=== PATIENT | female | born 1990 | race Caucasian/White ===

== ENCOUNTER 2018-06-02 17:05 | Emergency (ER) | payer MEDICAID, OTHER ==
[~2018-06-02] VITALS: Ht 177.8 cm; Wt 56.7 kg
[2018-06-02 17:15] VITALS: BP 121/55
[2018-06-02] MEDS ORDERED: ORTHO TRI-CYCL1 EAC1 PO (17:16)
[2018-06-02] MEDS ORDERED: KLONOPIN0.5 MG ORAL (17:16)
[2018-06-02] MEDS ORDERED: Morphine Sulfate 4mg/ml Inj (IV/IM USE ONLY) IVP ONE (17:30)
[2018-06-02 17:49] LABS: APPEARANCE,URINE CLEAR; BILIRUBIN, URINE NEGATIVE (NEGATIVE); GLUCOSE, URINE (UA) NEGATIVE (NEGATIVE); KETONES,URINE NEGATIVE (NEGATIVE); LEUKOCYTE ESTERASE ,URINE NEGATIVE (NEGATIVE); NITRITE,URINE NEGATIVE (NEGATIVE); PH,URINE 5 (4.5-8.0); PROTEIN,URINE NEGATIVE (NEGATIVE); UROBILINOGEN,URINE NORMAL MG/DL (0.0-1.0)
[2018-06-02 17:53] LABS: BASOPHILS % (AUTO) 1.3 % (0.0-2.0); EOSINOPHILS % (AUTO) 1.9 % (0.0-3.0); HEMATOCRIT 41.9 % (37.0-47.0); HEMOGLOBIN 14.2 G/DL (12.0-16.0); LYMPHOCYTES % (AUTO) 38.3 % (20.0-45.0); MEAN CORPUSCULAR VOLUME 90 FL (80-99); MONOCYTES % (AUTO) 6.6 % (1.0-10.0); PLATELET COUNT 238 K/UL (150-450); RED BLOOD COUNT 4.65 M/UL (4.20-5.40); RED CELL DISTRIBUTION WIDTH 11.2 % (11.6-14.8); WHITE BLOOD COUNT 6.9 K/UL (4.8-10.8)
[2018-06-02 17:53] LABS: COLOR,URINE YELLOW
[2018-06-02] MEDS ORDERED: Morphine Sulfate 2mg/ml Inj IVP ONE (18:00)
[2018-06-02 18:02] LABS: ANION GAP 7 mmol/L (5-15); BLOOD UREA NITROGEN 10 mg/dL (7-18); CALCIUM 8.6 MG/DL (8.5-10.1); CARBON DIOXIDE 28 MMOL/L (21-32); CHLORIDE 102 MMOL/L (98-107); POTASSIUM 3.9 MMOL/L (3.5-5.1); SODIUM 137 MMOL/L (136-145)
[2018-06-02 18:07] LABS: ALANINE AMINOTRANSFERASE 41 U/L (12-78); ALBUMIN 3.3 G/DL (3.4-5.0); ALBUMIN/GLOBULIN RATIO 0.7 (1.0-2.7); ALKALINE PHOSPHATASE 56 U/L (46-116); ASPARTATE AMINO TRANSFERASE 27 U/L (15-37); BILIRUBIN,TOTAL 0.3 MG/DL (0.2-1.0)
[2018-06-02 19:23] VITALS: BP 106/56
[2018-06-02] MEDS ORDERED: ACETAMINOPHEN-1 EAC1 ORAL (19:46)
[2018-06-02] MEDS ORDERED: IBUPROFEN600 MG ORAL (19:46)
[2018-06-02 19:53] VITALS: BP 106/56
--- NOTE | 2018-06-02 22:15 | Emergency Room Report ---
History of Present Illness General Chief Complaint: Abdominal Pain Source: Patient Present Illness HPI 28-year-old female presents ED for evaluation. Complaining of lower abdominal pain 1 month. 6 out of 10, dull, radiating to the back. States that her period started early she's been bleeding heavier than usual. States that up to 2 months ago she was having regular periods. Denies chest pain or shortness of breath. Denies fevers or chills. States she is currently taking Ortho Tri- Cyclen for control. No other aggravating or relieving factors. Denies any other associated symptoms Allergies: Coded Allergies: No Known Allergies (Unverified , 06/02/18) Patient History Past Medical History: none Past Surgical History: none Pertinent Family History: none Social History: Denies: smoking, alcohol use, drug use Last Menstrual Period: 04/2018 Now: No Immunizations: UTD Reviewed Nursing Documentation: PMH: Agreed; PSxH: Agreed Nursing Documentation-PMH Past Medical History: No History, Except For Review of Systems All Other Systems: negative except mentioned in HPI Physical Exam Vital Signs Date Time Temp Pulse Resp B/P (MAP) Pulse Ox O2 Delivery O2 Flow Rate FiO2 06/02/18 17:08 97.7 76 18 104/62 99 Room Air Sp02 EP Interpretation: reviewed, normal General Appearance: no apparent distress, alert, GCS 15, non-toxic Head: normocephalic, atraumatic Eyes: bilateral eye normal inspection, bilateral eye PERRL ENT: hearing grossly normal, normal pharynx, no angioedema, normal voice Neck: full range of motion, supple/symm/no masses Respiratory: chest non-tender, lungs clear, normal breath sounds, speaking full sentences Cardiovascular #1: regular rate, rhythm, no edema Cardiovascular #2: 2+ carotid (R), 2+ carotid (L), 2+ radial (R), 2+ radial (L) , 2+ dorsalis pedis (R), 2+ dorsalis pedis (L) Gastrointestinal: normal bowel sounds, soft, non-distended, no guarding, no rebound, tenderness - lower abd pain Rectal: deferred Genitourinary: normal inspection, no CVA tenderness Musculoskeletal: back normal, gait/station normal, normal range of motion, non- tender Neurologic: alert, oriented x3, responsive, motor strength/tone normal, sensory intact, speech normal Psychiatric: judgement/insight normal, memory normal, mood/affect normal, no suicidal/homicidal ideation Reflexes: 3+ bicep (R), 3+ bicep (L), 3+ tricep (R), 3+ tricep (L), 3+ knee (R) , 3+ knee (L) Skin: normal color, no rash, warm/dry, well hydrated Lymphatic: no adenopathy Medical Decision Making Diagnostic Impression: Primary Impression: Fibroids Qualified Codes: D25.9 - Leiomyoma of uterus, unspecified ER Course Hospital Course 28-year-old female presents to ED complaining of lower abdominal pain + bleeding Differential diagnoses include: gastrits, gastroenterits, ectopic , ovarian torsion/cyst, UTI Clinical course Patient placed on stretcher in ED. After initial history and physical I ordered labs, IV fluids and pain meds and pelvic ultrasound. Labs-no leukocytosis, hb/hct stable, electrolytes okay, beta hCG negative, UA negative Pelvic ultrasound- fibroids, follicular cysts bilateral ovaries Discussed findings with patient. Safe for discharge with close outpatient follow-up. States she is currently taking Ortho Tri-Cyclen for control. Has an WELFARE OFFICER to follow-up with. Diagnosis - fibroids Stable and discharged to home with Rx MOtrin, Tylenol #3. Followup with PMD/OB/ MOVIE WRITER. Return to ED if symptoms recur or worsen Labs Test 06/02/18 17:25 06/02/18 17:38 Urine Color Yellow Urine Appearance Clear Urine pH 5 (4.5-8.0) Urine Specific [place] 1.020 (1.005-1.035) Urine Protein Negative (NEGATIVE) Urine Glucose (UA) Negative (NEGATIVE) Urine Ketones Negative (NEGATIVE) Urine Blood 3+ (NEGATIVE) Urine Nitrite Negative (NEGATIVE) Urine Bilirubin Negative (NEGATIVE) Urine Urobilinogen Normal MG/DL (0.0-1.0) Urine Leukocyte Esterase Negative (NEGATIVE) Urine RBC 2-4 /HPF (0 - 2) Urine WBC 0-2 /HPF (0 - 2) Urine Squamous Epithelial Cells Few /LPF (NONE/OCC) Urine Bacteria Occasional /HPF (NONE) Urine Mucus Few /LPF (NONE/OCC) Urine HCG, Qualitative Negative (NEGATIVE) White Blood Count 6.9 K/UL (4.8-10.8) Red Blood Count 4.65 M/UL (4.20-5.40) Hemoglobin 14.2 G/DL (12.0-16.0) Hematocrit 41.9 % (37.0-47.0) Mean Corpuscular Volume 90 FL (80-99) Mean Corpuscular Hemoglobin 30.6 PG (27.0-31.0) Mean Corpuscular Hemoglobin Concent 34.0 G/DL (32.0-36.0) Red Cell Distribution Width 11.2 % (11.6-14.8) Platelet Count 238 K/UL (150-450) Mean Platelet Volume 10.1 FL (6.5-10.1) Neutrophils (%) (Auto) 52.0 % (45.0-75.0) Lymphocytes (%) (Auto) 38.3 % (20.0-45.0) Monocytes (%) (Auto) 6.6 % (1.0-10.0) Eosinophils (%) (Auto) 1.9 % (0.0-3.0) Basophils (%) (Auto) 1.3 % (0.0-2.0) Sodium Level 137 MMOL/L (136-145) Potassium Level 3.9 MMOL/L (3.5-5.1) Chloride Level 102 MMOL/L (98-107) Carbon Dioxide Level 28 MMOL/L (21-32) Anion Gap 7 mmol/L (5-15) Blood Urea Nitrogen 10 mg/dL (7-18) Creatinine 1.0 MG/DL (0.55-1.30) Estimat Glomerular Filtration Rate > 60 mL/min (>60) Glucose Level 153 MG/DL (74-106) Calcium Level 8.6 MG/DL (8.5-10.1) Total Bilirubin 0.3 MG/DL (0.2-1.0) Aspartate Amino Transf (AST/SGOT) 27 U/L (15-37) Alanine Aminotransferase (ALT/SGPT) 41 U/L (12-78) Alkaline Phosphatase 56 U/L (46-116) Total Protein 8.2 G/DL (6.4-8.2) Albumin 3.3 G/DL (3.4-5.0) Globulin 4.9 g/dL Albumin/Globulin Ratio 0.7 (1.0-2.7) Lipase 165 U/L (73-393) CT/MRI/US Diagnostic Results CT/MRI/US Diagnostic Results : Imaging Test Ordered: US Impression fibroid. bilateral ovarian follicular cysts Last Vital Signs Date Time Temp Pulse Resp B/P (MAP) Pulse Ox O2 Delivery O2 Flow Rate FiO2 06/02/18 19:53 98.0 75 16 106/56 98 Room Air 65 Status: improved Disposition: HOME, SELF-CARE Condition: Stable Scripts Ibuprofen* (MOTRIN*) 600 Mg Tablet 600 MG ORAL Q8H PRN for For Pain, #30 TAB 0 Refills Prov: Lc Ko MD 06/02/18 Acetaminophen With Codeine (T#3) (TYLENOL #3 TAB*) Y Tab 1 TAB ORAL Q8H PRN for For Pain, #20 TAB Prov: Lc Ko MD 06/02/18 Patient Instructions: Uterine Fibroids, [id number] Lc Ko MD Jun 02, 2018 22:15
--- NOTE | 2018-06-03 09:45 | Diagnostic Imaging Report ---
Indication: Pelvic pain, vaginal bleeding. Negative test Technique: Transabdominal and transvaginal images Comparison: none Findings: Uterus measures 8.8 cm length by 4.2 cm AP. Endometrium measures 8 mm thick. Suggestion of a 4 mm tiny fluid collection seen in the lower uterine/upper cervical endometrium. Possible small 9 mm subserosal exophytic fibroid noted posteriorly. Right ovary measures 4.3 cm length. Left ovary measures 3.7 cm length. No adnexal mass. There is trace free cul-de-sac fluid Impression: Possible small subserosal exophytic uterine fibroid Nonspecific tiny fluid collection within the lower uterine/upper cervical endometrium. May be old blood given stated clinical history of vaginal bleeding Trace free cul-de-sac fluid, presumably physiologic Negative for adnexal mass
== END 2018-06-02 19:53 | disposition home or self-care (01) ==
LOC: EMR 17:51
DX: D25.9 Leiomyoma of uterus, unspecified (principal); N92.0 Excessive and frequent menstruation with regular cycle
CPT/HCPCS: 36415; 76830; 76856; 80053; 81003; 81025; 83690; 85025; 96361; 96374; 99284; J2270

== ENCOUNTER 2018-06-16 16:46 | Emergency (ER) | payer MEDICAID ==
[~2018-06-16] VITALS: Ht 177.8 cm; Wt 56.7 kg
[~2018-06-16 16:46] MED LIST: ACETAMINOPHEN-1 EAC1 ORAL; IBUPROFEN600 MG ORAL; KLONOPIN0.5 MG ORAL; ORTHO TRI-CYCL1 EAC1 PO
[2018-06-16] MEDS ORDERED: NKM (16:54)
[2018-06-16 17:00] VITALS: BP 115/62
--- NOTE | 2018-06-16 17:16 | Emergency Room Report ---
History of Present Illness General Chief Complaint: Fever Source: Patient, Family Member Present Illness HPI 28-year-old female presents to the emergency department complaining of 10 out of 10 in severity low pelvic pain and pressure this afternoon. Patient reports that she was here a week ago with similar symptoms and found that she had a fibroid on ultrasound. Patient states that she has been having some discharge and reports recent unprotected intercourse over 3 weeks ago. Patient states that she self medicated with a boric acid suppositories to see if that would help clear the discharge for which it did not. Patient also states that today she started getting the chills and had severe pelvic pain to the point where it caused her to feel lightheaded. Patient reports she had a measured fever of 100 initially and then states prior to arrival here she measured it again it was 101. Patient states she took previously prescribed Tylenol with codeine which did not provide her much relief. She reports nausea she denies vomiting and denies constipation or diarrhea. pt. denies . Allergies: Coded Allergies: No Known Allergies (Unverified , 06/02/18) Patient History Past Medical History: see triage record Past Surgical History: none Pertinent Family History: none Last Menstrual Period: 05/30/18 Now: No Reviewed Nursing Documentation: PMH: Agreed; PSxH: Agreed Nursing Documentation-PMH Past Medical History: No History, Except For Hx Cardiac Problems: No - Ovarian cyst 2003 Review of Systems All Other Systems: negative except mentioned in HPI Physical Exam Vital Signs Date Time Temp Pulse Resp B/P (MAP) Pulse Ox O2 Delivery O2 Flow Rate FiO2 06/16/18 16:51 98.1 108 18 115/62 100 Room Air Sp02 EP Interpretation: reviewed, normal General Appearance: alert, GCS 15, non-toxic, mild distress Head: normocephalic, atraumatic Eyes: bilateral eye normal inspection, bilateral eye PERRL ENT: hearing grossly normal, normal voice Neck: full range of motion Respiratory: chest non-tender, lungs clear, normal breath sounds, speaking full sentences Cardiovascular #1: regular rate, rhythm, no edema, tachycardia Gastrointestinal: normal bowel sounds, non tender, soft, no peritonitis, non- distended, no guarding Rectal: deferred Genitourinary: normal inspection, no CVA tenderness, adnexa normal, ext genitalia/vag normal, other - CMT and white d/c in the vaginal vault. Musculoskeletal: back normal, gait/station normal, normal range of motion, non- tender Neurologic: alert, oriented x3, responsive, motor strength/tone normal, sensory intact, speech normal, grossly normal Psychiatric: judgement/insight normal Skin: normal color, no rash, warm/dry, well hydrated Lymphatic: no adenopathy Medical Decision Making PA Attestation Dr. Palma is my supervising Physician whom patient management has been discussed with. Diagnostic Impression: Primary Impression: PID (pelvic inflammatory disease) Additional Impression: Pelvic pain ER Course 28-year-old female presents to the emergency department complaining of 10 out of 10 in severity low pelvic pain and pressure this afternoon. Patient reports that she was here a week ago with similar symptoms and found that she had a fibroid on ultrasound. Patient states that she has been having some discharge and reports recent unprotected intercourse over 3 weeks ago. Patient states that she self medicated with a boric acid suppositories to see if that would help clear the discharge for which it did not. Patient also states that today she started getting the chills and had severe pelvic pain to the point where it caused her to feel lightheaded. Patient reports she had a measured fever of 100 initially and then states prior to arrival here she measured it again it was 101. Patient states she took previously prescribed Tylenol with codeine which did not provide her much relief. She reports nausea she denies vomiting and denies constipation or diarrhea. pt. denies . Ddx considered but are not limited to UTi , Pyelo, STI, Stone, Cystitis, PID, Fibroids, endometriosis just to name a few. Vital signs: tachycardic . Pt. is afebrile , Fever did return during ED stay. H&PE are most consistent with UTI ORDERS: - UA labs are attached : unremarkable -Urine Hcg: Negative -Wet mount: no clue, trichomonas, or yeast. Moderate amount of bacteria -G&C : pending -Lactic Acid: 2.1 -CBC: WBC 1100 -BMP : unremarkable ED INTERVENTIONS: - Toradol IV -Rocephin IM -1 liter NS IV -[place] PO -Doxy PO Patient reports upon reevaluation that her symptoms have improved immensely she does not feel that she would require admission at this time I discussed with this patient close outpatient follow-up with antibiotics regularly and managing fevers with Tylenol or Motrin. Went over signs and symptoms such as unresponsive fevers or worsening of pain that would indicate pop return to the emergency department. DISCHARGE: At this time pt. is stable for d/c to home. Will provide printed patient care instructions, and any necessary prescriptions. Care plan and follow up instructions have been discussed with the patient prior to discharge. Labs Test 06/16/18 16:56 06/16/18 18:10 Urine Color Pale yellow Urine Appearance Clear Urine pH 7 (4.5-8.0) Urine Specific [place] 1.005 (1.005-1.035) Urine Protein Negative (NEGATIVE) Urine Glucose (UA) Negative (NEGATIVE) Urine Ketones Negative (NEGATIVE) Urine Blood 1+ (NEGATIVE) Urine Nitrite Negative (NEGATIVE) Urine Bilirubin Negative (NEGATIVE) Urine Urobilinogen Normal MG/DL (0.0-1.0) Urine Leukocyte Esterase Negative (NEGATIVE) Urine RBC 0-2 /HPF (0 - 2) Urine WBC 0-2 /HPF (0 - 2) Urine Squamous Epithelial Cells Few /LPF (NONE/OCC) Urine Bacteria Occasional /HPF (NONE) Urine HCG, Qualitative Negative (NEGATIVE) White Blood Count 11.0 K/UL (4.8-10.8) Red Blood Count 4.47 M/UL (4.20-5.40) Hemoglobin 13.7 G/DL (12.0-16.0) Hematocrit 41.1 % (37.0-47.0) Mean Corpuscular Volume 92 FL (80-99) Mean Corpuscular Hemoglobin 30.7 PG (27.0-31.0) Mean Corpuscular Hemoglobin Concent 33.4 G/DL (32.0-36.0) Red Cell Distribution Width 10.9 % (11.6-14.8) Platelet Count 149 K/UL (150-450) Mean Platelet Volume 9.7 FL (6.5-10.1) Neutrophils (%) (Auto) 88.8 % (45.0-75.0) Lymphocytes (%) (Auto) 6.3 % (20.0-45.0) Monocytes (%) (Auto) 4.7 % (1.0-10.0) Eosinophils (%) (Auto) 0.1 % (0.0-3.0) Basophils (%) (Auto) 0.2 % (0.0-2.0) Sodium Level 136 MMOL/L (136-145) Potassium Level 3.7 MMOL/L (3.5-5.1) Chloride Level 99 MMOL/L (98-107) Carbon Dioxide Level 28 MMOL/L (21-32) Anion Gap 9 mmol/L (5-15) Blood Urea Nitrogen 8 mg/dL (7-18) Creatinine 0.9 MG/DL (0.55-1.30) Estimat Glomerular Filtration Rate > 60 mL/min (>60) Glucose Level 98 MG/DL (74-106) Lactic Acid Level 2.10 mmol/L (0.4-2.0) Calcium Level 9.1 MG/DL (8.5-10.1) Last Vital Signs Date Time Temp Pulse Resp B/P (MAP) Pulse Ox O2 Delivery O2 Flow Rate FiO2 06/16/18 16:51 98.1 108 18 115/62 100 Room Air Disposition: HOME, SELF-CARE Condition: Stable Scripts Ibuprofen* (MOTRIN*) 600 Mg Tablet 600 MG ORAL THREE TIMES A DAY, #30 TAB 0 Refills Prov: Cyn Shelley 06/16/18 Hydrocodone Bit/Acetaminophen 5-325* (NORCO 5-325*) 1 Each Tablet 1 TAB ORAL Q6H PRN for For Pain, #10 TAB 0 Refills Prov: Cyn Shelley 06/16/18 Metronidazole* (FLAGYL*) 500 Mg Tablet 500 MG ORAL BID, #28 TAB 0 Refills Prov: Cyn Shelley 06/16/18 Doxycycline Hyclate* (VIBRAMYCIN*) 100 Mg Capsule 100 MG ORAL EVERY 12 HOURS for 14 Days, #28 CAP 0 Refills Prov: Cyn Shelley 06/16/18 Patient Instructions: Pelvic Inflammatory Disease, [id number] Additional Instructions: Take medications as directed. Follow up with a Primary Care Provider in 3-5 days, even if your symptoms have resolved. --Please review list of primary care clinics, if you do not already have a primary care provider Return sooner to ED if new symptoms occur, or current symptoms become worse. Do not drink alcohol, drive, or operate heavy machinery while taking [place] as this may cause drowsiness. - Please note that this Emergency Department Report was dictated using [employer] program manager technology software, occasionally this can lead to erroneous entry secondary to interpretation by the dictation equipment. Cyn Shelley Jun 16, 2018 17:16
[2018-06-16 17:23] LABS: APPEARANCE,URINE CLEAR; BILIRUBIN, URINE NEGATIVE (NEGATIVE); COLOR,URINE PALE YELLOW; GLUCOSE, URINE (UA) NEGATIVE (NEGATIVE); KETONES,URINE NEGATIVE (NEGATIVE); LEUKOCYTE ESTERASE ,URINE NEGATIVE (NEGATIVE); NITRITE,URINE NEGATIVE (NEGATIVE); PH,URINE 7 (4.5-8.0); PROTEIN,URINE NEGATIVE (NEGATIVE); UROBILINOGEN,URINE NORMAL MG/DL (0.0-1.0)
[2018-06-16] MEDS ORDERED: Ketorolac 30mg Inj IM ONE (17:45)
[2018-06-16] MEDS ORDERED: Lidocaine 1% MPF 10mg/ml 5ml INJ ONE (17:45)
[2018-06-16] MEDS ORDERED: HYDROcodone/Acetamin 7.5/325 tab ORAL ONE (17:45)
[2018-06-16] MEDS ORDERED: Ketorolac 30mg Inj IV ONE (18:00)
[2018-06-16 18:30] VITALS: BP 115/60
[2018-06-16 18:44] LABS: EOSINOPHILS % (AUTO) 0.1 % (0.0-3.0); HEMATOCRIT 41.1 % (37.0-47.0); HEMOGLOBIN 13.7 G/DL (12.0-16.0); LYMPHOCYTES % (AUTO) 6.3 % (20.0-45.0); MEAN CORPUSCULAR VOLUME 92 FL (80-99); MONOCYTES % (AUTO) 4.7 % (1.0-10.0); NEUTROPHILS % (AUTO) 88.8 % (45.0-75.0); PLATELET COUNT 149 K/UL (150-450); RED BLOOD COUNT 4.47 M/UL (4.20-5.40); RED CELL DISTRIBUTION WIDTH 10.9 % (11.6-14.8)
[2018-06-16 18:45] LABS: BASOPHILS % (AUTO) 0.2 % (0.0-2.0)
[2018-06-16 18:54] LABS: ANION GAP 9 mmol/L (5-15); BLOOD UREA NITROGEN 8 mg/dL (7-18); CALCIUM 9.1 MG/DL (8.5-10.1); CARBON DIOXIDE 28 MMOL/L (21-32); CHLORIDE 99 MMOL/L (98-107); CREATININE 0.9 MG/DL (0.55-1.30); POTASSIUM 3.7 MMOL/L (3.5-5.1); SODIUM 136 MMOL/L (136-145)
[2018-06-16] MEDS ORDERED: VIBRAMYCIN100 MG ORAL (20:14)
[2018-06-16] MEDS ORDERED: METRONIDAZOLE500 MG ORAL (20:14)
[2018-06-16] MEDS ORDERED: NORCO 5-325 TA1 EACH ORAL (20:14)
[2018-06-16] MEDS ORDERED: IBUPROFEN600 MG ORAL (20:14)
[2018-06-16 20:25] VITALS: BP 112/76
== END 2018-06-16 20:20 | disposition home or self-care (01) ==
LOC: EMR 18:31
DX: N73.9 Female pelvic inflammatory disease, unspecified (principal)
CPT/HCPCS: 36415; 80048; 81003; 81025; 83605; 85025; 87040; 87210; 87491; 87590; 96361; 96372; 96374; 99284; J0696; J1885

== ENCOUNTER → 2019-06-03 | Emergency (ER) | payer MEDICAID ==
[~2019-06-03] VITALS: Ht 177.8 cm; Wt 56.7 kg
[~2019-06-03] MED LIST changes: +AMITRIPTYLINE100 MG ORAL; +METRONIDAZOLE500 MG ORAL; +NKM; +NORCO 5-325 TA1 EACH ORAL; +VIBRAMYCIN100 MG ORAL
[2019-06-03 11:38] VITALS: BP 107/64
--- NOTE | 2019-06-03 12:22 | Emergency Room Report ---
History of Present Illness General Chief Complaint: Medication Refill Source: Patient (Cyn Shelley) Present Illness HPI 29 YO Female presents to the ED c/o hx of anxiety and needs medication refill for Klonopin 0.5mg which she takes TID. Pt. has been out of her medication. The patient states that she is temporarily out here from [place] and the person who has been prescribing her medications as her primary care provider in [place] who can only prescribe her medication in person. Patient reports that she will be out here for another 1 to 2 months. She reports that she is having heightened anxiety and shakiness. Denies CP, Palpitations, LOC, AMS, dizziness, Changes in Vision, Sensation, paresthesias, or a sudden severe headache. (Cyn Shelley) Allergies: Coded Allergies: No Known Allergies (Unverified , 06/02/18) Patient History Past Medical History: see triage record, psych hx Past Surgical History: none Pertinent Family History: none Last Menstrual Period: on period Now: No Reviewed Nursing Documentation: PMH: Agreed; PSxH: Agreed (Cyn Shelley) Nursing Documentation-PMH Past Medical History: No History, Except For Hx Cardiac Problems: No - Ovarian cyst 2003 History Of Psychiatric Problem: Yes - anxiety (Cyn Shelley) Review of Systems All Other Systems: negative except mentioned in HPI (Cyn Shelley) Physical Exam Vital Signs Date Time Temp Pulse Resp B/P (MAP) Pulse Ox O2 Delivery O2 Flow Rate FiO2 06/03/19 11:38 98.1 19 107/64 98 Room Air 06/03/19 11:38 80 Sp02 EP Interpretation: reviewed, normal General Appearance: no apparent distress, alert, GCS 15, non-toxic Head: normocephalic, atraumatic Eyes: bilateral eye normal inspection, bilateral eye PERRL ENT: hearing grossly normal, normal voice Neck: full range of motion Respiratory: lungs clear, normal breath sounds, speaking full sentences Cardiovascular #1: regular rate, rhythm Musculoskeletal: normal range of motion, gait/station normal, non-tender Neurologic: alert, motor strength/tone normal, oriented x3, sensory intact, responsive, speech normal Psychiatric: judgement/insight normal Skin: normal color, normal inspection (Cyn Shelley) Medical Decision Making PA Attestation Dr. Figueroa Is my supervising Physician whom patient management has been discussed with. (Cyn Shelley) Diagnostic Impression: Primary Impression: Encounter for medication refill ER Course 29 YO Female presents to the ED c/o hx of anxiety and needs medication refill for Klonopin 0.5mg which she takes TID. Pt. has been out of her medication. The patient states that she is temporarily out here from [place] and the person who has been prescribing her medications as her primary care provider in [place] who can only prescribe her medication in person. Patient reports that she will be out here for another 1 to 2 months. She reports that she is having heightened anxiety and shakiness. Denies CP, Palpitations, LOC, AMS, dizziness, Changes in Vision, Sensation, paresthesias, or a sudden severe headache. Ddx considered but are not limited to: drug seeking, BRITTA, panic attack, hyperthyroid, Drug use. Vital signs: are WNL, pt. is afebrile H&PE are most consistent with nonemergent need for medication refill. ORDERS: none required at this time, the diagnosis is clinical ED INTERVENTIONS: None required at this time. -Review of [employer] web-site : Last fill for 30-day supply of Klonopin was April 03, Pt. is well out of her medication by now. DISCHARGE: At this time pt. is stable for d/c to home. Will provide printed patient care instructions, and any necessary prescriptions. Care plan and follow up instructions have been discussed with the patient prior to discharge. (Cyn Shelley) Last Vital Signs Date Time Temp Pulse Resp B/P (MAP) Pulse Ox O2 Delivery O2 Flow Rate FiO2 06/03/19 11:38 98.1 80 19 107/64 (78) 98 Room Air (Cyn Shelley) Disposition: HOME, SELF-CARE Condition: Stable Scripts Clonazepam* (KLONOPIN*) 0.5 Mg Tablet 0.5 MG ORAL TID, #12 TAB 0 Refills Prov: Cyn Shelley 06/03/19 Referrals: NOT CHOSEN IPA/,REFERRING (PCP) Patient Instructions: Medicine Refill at the Emergency Department Additional Instructions: Take medications as directed. Follow up with a Mental Health Specialist/ Psychiatrist in 3 days, even if your symptoms have resolved. --Please review [facility] resource information provided Return sooner to ED if new symptoms occur, or current symptoms become worse. - Please note that this Emergency Department Report was dictated using [employer] controller technology software, occasionally this can lead to erroneous entry secondary to interpretation by the dictation equipment. Cyn Shelley Jun 03, 2019 12:22 Nasir Figueroa MD Jun 03, 2019 20:32
== END | disposition home or self-care (01) ==
LOC: EMR 11:54
DX: Z76.0 Encounter for issue of repeat prescription (principal); F41.9 Anxiety disorder, unspecified; Z79.899 Other long term (current) drug therapy
CPT/HCPCS: 99282